=== PATIENT | male | born 1995 | race Asian ===

== ENCOUNTER 2017-06-18 23:54 | Emergency (ER) | payer OTHER ==
[2017-06-18 23:58] VITALS: RESP 16; TEMP 98.1
--- NOTE | 2017-06-19 | EDPHY ---
H & P Stated Complaint: fell off skateboard, L ankle pain HPI/ROS: HPI CHIEF COMPLAINT: Left ankle pain HISTORY OF PRESENT ILLNESS: Patient is a 22-year-old male otherwise healthy no significant medical history presents emergency room with left ankle pain. The pain is located left lateral ankle and swelling present. He was skateboarding he was going down stairs on his skateboard and fell landing on his left ankle. Denies any other area injury. Specifically denies chest pain shortness of breath. Denies knee pain. Denies back pain neck pain or headache. Pain is located 8/10 left lateral ankle. Swelling noted. He is able to bear weight but has pain. Neurovascular intact. Denies any other areas of injury. Past Medical History: Denies significant medical history Past Surgical History: Denies significant surgical history Social History: Denies daily use drugs alcohol tobacco products. [employer] student. Family History: Noncontributory ROS REVIEW OF SYSTEMS: A comprehensive 10 point review of systems is otherwise negative aside from elements mentioned in the history of present illness. Exam Constitutional appears well nontoxic triage nursing summary reviewed, vital signs reviewed, awake/alert. Eyes normal conjunctivae and sclera, EOMI, PERRLA. HENT normal inspection, atraumatic, moist mucus membranes, no epistaxis, neck supple/ no meningismus, no raccoon eyes. Respiratory clear to auscultation bilaterally, normal breath sounds, no respiratory distress, no wheezing. Cardiovascular rate normal, regular rhythm, no murmur, no edema, distal pulses normal. Gastrointestinal soft, non-tender, no rebound, no guarding, normal bowel sounds, no distension, no pulsatile mass. Genitourinary no CVA tenderness. Musculoskeletal left leg: Neurovascular intact good distal pulse. Good cap refill. Swelling noted over the left lateral malleolus. Tender palpation over the lateral malleolus. Full range of motion. Compartments are soft. Neurovascular intact. Good cap refill. Good distal pulse. no midline vertebral tenderness, full range of motion, no calf swelling, no tenderness of extremities, no meningismus, good pulses, neurovascularly intact. Skin pink, warm, & dry, no rash, skin atraumatic. Neurologic awake, alert and oriented x 3, AAOx3, moves all 4 extremities equally, motor intact, sensory intact, CN II-XII intact, normal cerebellar, normal vision, normal speech. Psychiatric normal mood/affect. Heme/Lymph/Immune no lymphadenopathy. Differential Diagnosis: Includes but is not limited to in a particular order, left ankle sprain, left ankle contusion, soft tissue injury, left ankle fracture. Dislocation. Medical Decision Making: Plan for this patient x-ray of the left ankle. Ice pack. Anti-inflammatory pain medicine and re-evaluate. Re-evaluation: Ankle x-ray reviewed by myself. No fracture present. Soft tissue swelling present consistent with a sprain. This patient be placed in a walking boot. Crutches. Orthopedic follow-up. Ice and anti-inflammatory pain medicine. Recommend keeping leg elevated. I did go over this with the patient. He understands additionally understands return precautions. He has no significant leg swelling. There is no signs of compartment syndrome. Source: Patient - Personal History Current Tetanus/Diphtheria Vaccine: Yes Current Tetanus Diphtheria and Acellular Pertussis (TDAP): Yes - Medical/Surgical History Hx Asthma: No Hx Chronic Respiratory Disease: No Hx Diabetes: No Hx Cardiac Disease: No Hx Renal Disease: No Hx Cirrhosis: No Hx Alcoholism: No Hx HIV/AIDS: No Hx Splenectomy or Spleen Trauma: No Other PMH: denies - Social History Smoking Status: Never smoked Constitutional: Initial Vital Signs Temperature (C) 36.7 C 06/18/17 23:56 Heart Rate 91 06/18/17 23:56 Respiratory Rate 16 06/18/17 23:56 Blood Pressure 128/95 H 06/18/17 23:56 O2 Sat (%) 99 06/18/17 23:56 O2 Delivery Mode Room Air Allergies/Adverse Reactions: No Known Allergies Allergy (Unverified 06/18/17 23:59) Home Medications: Medication Instructions Recorded Ibuprofen [Motrin (*)] 800 mg PO Q6-8PRN #10 tab 06/19/17 Medical Decision Making - Data Points Medications Given: Discontinued Medications Ibuprofen (Motrin) 800 mg PO EDNOW ONE Stop: 06/19/17 00:04 Last Admin: 06/19/17 00:09 Dose: 800 mg Departure - Departure Disposition: Home, Routine, Self-Care Clinical Impression: Ankle sprain Qualifiers: Encounter type: initial encounter Involved ligament of ankle: other ligament Laterality: left Qualified Code(s): S93.492A - Sprain of other ligament of left ankle, initial encounter Condition: Good Instructions: Ankle Sprain (ED) Additional Instructions: 1. Ice her ankle. 2. Anti-inflammatory pain medicine for pain control. 3. Follow up with Orthopedics. 4. Keep your leg elevated. 5. Walking boot and crutches for comfort. Referrals: Patient,NotPresent [Unknown] - As per Instructions Morteza Weeks MD [Medical Doctor] - As per Instructions Prescriptions: Ibuprofen [Motrin (*)] 800 mg PO Q6-8PRN #10 tab
[2017-06-19] MEDS ORDERED: IBUPROFEN 800 MG TAB PO ONE (00:03)
[2017-06-19 01:43] VITALS: BP 148/94; PULSE 85; O2SAT 98
== END 2017-06-19 01:43 | disposition home or self-care (01) ==
DX: S93.492A Sprain of other ligament of left ankle, initial encounter (principal); V00.131A Fall from skateboard, initial encounter; Y99.8 Other external cause status; Y93.51 Activity, roller skating (inline) and skateboarding
CPT/HCPCS: L4386